=== PATIENT | male | born 1990 | race Caucasian/White ===

== ENCOUNTER 2018-06-17 19:40 | Emergency (ER) | payer MEDICAID ==
[~2018-06-17] VITALS: Ht 172.7 cm; Wt 100.5 kg
[~2018-06-17 19:40] MED LIST: PRED20TA PO
[2018-06-17 20:01] VITALS: BP 133/95
[2018-06-17] MEDS ORDERED: AZIT-63 PO (20:20)
[2018-06-17] MEDS ORDERED: azithromycin 250mg tablet PO ONE (20:20)
== END 2018-06-17 20:37 | disposition home or self-care (01) ==
LOC: ER 19:40
DX: J20.9 Acute bronchitis, unspecified (principal); F17.210 Nicotine dependence, cigarettes, uncomplicated; Z79.899 Other long term (current) drug therapy
CPT/HCPCS: 99283

== ENCOUNTER 2019-08-22 15:05 | Emergency (ER) | payer MEDICAID ==
[~2019-08-22] VITALS: Ht 172.7 cm; Wt 101.0 kg
[2019-08-22 15:21] VITALS: BP 110/58
[2019-08-22] MEDS ORDERED: TETanus/Pertussis (Acell)/Diphther VAC/PF (Tdap-Adult) 0.5ml syringe IMVAC ONE (15:50)
[2019-08-22] MEDS ORDERED: CEPH250T PO (15:54)
== END 2019-08-22 16:23 | disposition home or self-care (01) ==
LOC: ER 15:06
DX: S51.831A Puncture wound without foreign body of right forearm, initial encounter (principal); Z79.899 Other long term (current) drug therapy; W22.8XXA Striking against or struck by other objects, initial encounter; Y93.89 Activity, other specified; Y92.89 Other specified places as the place of occurrence of the external cause; Y99.8 Other external cause status
CPT/HCPCS: 90471; 90715; 99284

== ENCOUNTER 2019-09-27 09:02 | Emergency (ER) | payer MEDICAID ==
[~2019-09-27] VITALS: Ht 175.3 cm; Wt 104.5 kg
[2019-09-27 09:08] VITALS: BP 141/102
[2019-09-27] MEDS ORDERED: LIDOcaine 1% W/epiNEPHrine 1:200,000 10ml vial IJ ONE (09:55)
[2019-09-27] MEDS ORDERED: DOXY100C77 PO (10:20)
[2019-09-27] MEDS ORDERED: CEPH-572 PO (10:20)
== END 2019-09-27 11:10 | disposition home or self-care (01) ==
LOC: ER 09:02
DX: L03.113 Cellulitis of right upper limb (principal); L02.413 Cutaneous abscess of right upper limb; Z79.2 Long term (current) use of antibiotics; Z79.899 Other long term (current) drug therapy
CPT/HCPCS: 10060; 99283